=== PATIENT | female | born 1990 | race Caucasian/White ===

== ENCOUNTER 2020-06-14 20:20 | Emergency (ER) | payer BC ==
[2020-06-14] MEDS ORDERED: KETOROLAC 30 MG/ML INJ ONE (21:34)
[2020-06-14] MEDS ORDERED: CYCLOBENZAPRINE 10 MG TAB ONE (21:34)
--- NOTE | 2020-06-14 22:17 | ER ---
Nurse's Notes [facility] Name: Bari Dempsey Age: 29 yrs Sex: Female : 1990 Arrival Date: 06/14/2020 Time: 20:22 Bed 24 Private MD: Diagnosis: Sprain of ligaments of lumbar spine;Sprain of other specified parts of left knee Presentation: 06/14 20:31 Chief complaint: Patient states: Low back pain for 2 days. left knee swelling for 2 ll1 days. Fell on that knee 2 weeks ago. Abrasion noted. Coronavirus screen: Client denies travel out of the [place] in the last 14 days. At this time, the client does not indicate any symptoms associated with coronavirus-19. Ebola Screen: Patient denies travel to an Ebola-affected area in the 21 days before illness onset. Initial Sepsis Screen: Does the patient meet any 2 criteria? No. Patient's initial sepsis screen is negative. Risk Assessment: Do you want to hurt yourself or someone else? Patient reports no desire to harm self or others. Onset of symptoms was June 13, 2020. 20:31 Method Of Arrival: Ambulatory ll1 20:31 Acuity: ITALO 3 ll1 Historical: - Allergies: 20:33 PENICILLINS; ll1 20:33 medical tape; ll1 - PSHx: 20:33 D \T\ C; ; Tubal ligation; ll1 - Immunization history:: Flu vaccine is not up to date. - Social history:: Smoking status: Patient reports the use of cigarette tobacco products, smokes one-half pack cigarettes per day. Screenin:17 Abuse screen: Denies threats or abuse. Denies injuries from another. Nutritional aj1 screening: No deficits noted. Tuberculosis screening: No symptoms or risk factors identified. 23:16 Fall Risk None identified. aj1 Assessment: 21:16 General: Appears in no apparent distress. uncomfortable, Behavior is calm, cooperative, aj1 appropriate for age. Pain: Complains of pain in low back area and left knee Pain currently is 10 out of 10 on a pain scale. Neuro: Level of Consciousness is awake, alert, obeys commands. 21:17 Cardiovascular: Patient's skin is warm and dry. Respiratory: Airway is patent aj1 Respiratory effort is even, unlabored, Respiratory pattern is regular, symmetrical. GI: No signs and/or symptoms were reported involving the gastrointestinal system. : No signs and/or symptoms were reported regarding the genitourinary system. EENT: No signs and/or symptoms were reported regarding the EENT system. Derm: Skin is pink, warm \T\ dry. normal, Wound noted left knee Wound is abrasion. Musculoskeletal: Range of motion: limited in left knee. 21:57 Reassessment: Patient appears in no apparent distress at this time. No changes from aj1 previously documented assessment. Patient and/or family updated on plan of care and expected duration. Pain level reassessed. Patient is alert, oriented x 3, equal unlabored respirations, skin warm/dry/pink. Xray at bedside. 22:10 Reassessment: Patient states that she feels like her muscles are a little less tight aj1 since administration of Flexeril, but she still is having a hard time getting comfortable. Patient states that she still does not want IM Toradol because she is afraid of needles. States that she is open to receiving PO Motrin instead. Notified Dr. Sotelo. Order received. 22:30 Reassessment: Discharge pending MD talking to patient to explain discharge instructions.aj1 23:16 Reassessment: Patient appears in no apparent distress at this time. No changes from aj1 previously documented assessment. Patient and/or family updated on plan of care and expected duration. Pain level reassessed. Patient is alert, oriented x 3, equal unlabored respirations, skin warm/dry/pink. Vital Signs: 20:31 BP 115 / 80; Pulse 83; Resp 17; Temp 98.1; Pulse Ox 99% ; Height 5 ft. 7 in. (170.18 ll1 cm); Pain 10/10; 22:22 BP 111 / 76; Pulse 74; Resp 18; Pulse Ox 100% on R/A; aj1 23:16 BP 112 / 73; Pulse 72; Resp 18; Pulse Ox 100% on R/A; aj1 ED Course: 20:22 Patient arrived in ED. cl3 20:33 Triage completed. ll1 20:33 Arm band placed on. ll1 20:57 Steve Sotelo MD is Attending Physician. tw4 21:16 Sandra España, RN is Primary Nurse. aj1 21:17 Patient has correct armband on for positive identification. Placed in gown. Bed in low aj1 position. Call light in reach. 21:17 No provider procedures requiring assistance completed. aj1 22:01 Knee Left 2 View In Process Unspecified. EDMS 23:16 Patient did not have IV access during this emergency room visit. aj1 Administered Medications: 21:25 Drug: Flexeril 10 mg Route: PO; aj1 23:17 Follow up: Response: No adverse reaction aj1 21:25 Not Given (Patient Refused): TORadol 60 mg IM once aj1 22:16 Drug: Ibuprofen 800 mg Route: PO; aj1 23:17 Follow up: Response: No adverse reaction aj1 Outcome: 22:16 Discharge ordered by . tw4 23:16 Discharged to home via wheelchair, with family. aj1 23:16 Condition: good 23:16 Discharge instructions given to patient, family, Instructed on discharge instructions, follow up and referral plans. no drinking with medication, no driving heavy equipment, medication usage, Demonstrated understanding of instructions, follow-up care, medications, Prescriptions given X 4. 23:17 Patient left the ED. aj1 Signatures: Dispatcher [employer] EDOR Sandra España RN RN aj1 Steve Sotelo MD MD twKyree Gonzalez cl3 Yuliet Gay, RN RN ll1 Corrections: (The following items were deleted from the chart) 21:20 21:16 Pain: Complains of pain in low back area Pain currently is 10 out of 10 on a pain aj1 scale. aj1
--- NOTE | 2020-06-14 22:17 | EDPHYS ---
Physician Documentation [facility] Name: Bari Dempsey Age: 29 yrs Sex: Female : 1990 Arrival Date: 06/14/2020 Time: 20:22 Bed 24 Private MD: ED Physician Steve Sotelo HPI: 06/15 05:54 This 29 yrs old Female presents to ER via Ambulatory with complaints of Low tw4 Back Pain, Knee Pain. 05:54 The patient presents with pain that is acute. The symptoms are located in the low back. tw4 The pain does not radiate. Onset: The symptoms/episode began/occurred today. Modifying factors: The patient symptoms are alleviated by nothing, the patient symptoms are aggravated by nothing. Severity of symptoms: At their worst the symptoms were moderate. The patient has not experienced similar symptoms in the past. Historical: - Allergies: 06/14 20:33 PENICILLINS; ll1 20:33 medical tape; ll1 - PSHx: 20:33 D \T\ C; ; Tubal ligation; ll1 - Immunization history:: Flu vaccine is not up to date. - Social history:: Smoking status: Patient reports the use of cigarette tobacco products, smokes one-half pack cigarettes per day. ROS: 06/15 05:54 Constitutional: Negative for fever, chills, and weight loss, Eyes: Negative for injury, tw4 pain, redness, and discharge, Cardiovascular: Negative for chest pain, palpitations, and edema, Respiratory: Negative for shortness of breath, cough, wheezing, and pleuritic chest pain, Abdomen/GI: Negative for abdominal pain, nausea, vomiting, diarrhea, and constipation, MS/Extremity: Negative for injury and deformity, Skin: Negative for injury, rash, and discoloration, Neuro: Negative for headache, weakness, numbness, tingling, and seizure. Back: Positive for decreased range of motion, pain at rest, pain with movement. MS/extremity: Positive for injury or acute deformity, pain, tenderness, Negative for Exam: 05:54 Constitutional: This is a well developed, well nourished patient who is awake, alert, tw4 and in no acute distress. Head/Face: Normocephalic, atraumatic. Chest/axilla: Normal chest wall appearance and motion. Nontender with no deformity. No lesions are appreciated. Cardiovascular: Regular rate and rhythm with a normal S1 and S2. No gallops, murmurs, or rubs. Normal PMI, no JVD. No pulse deficits. Respiratory: Lungs have equal breath sounds bilaterally, clear to auscultation and percussion. No rales, rhonchi or wheezes noted. No increased work of breathing, no retractions or nasal flaring. Abdomen/GI: Soft, non-tender, with normal bowel sounds. No distension or tympany. No guarding or rebound. No evidence of tenderness throughout. Back: No spinal tenderness. No costovertebral tenderness. Full range of motion. Neuro: Awake and alert, GCS 15, oriented to person, place, time, and situation. Cranial nerves II-XII grossly intact. Motor strength 5/5 in all extremities. Sensory grossly intact. Cerebellar exam normal. Normal gait. 05:54 Musculoskeletal/extremity: ROM: limited active range of motion, in the left knee, Circulation is intact in all extremities. Sensation intact. 05:57 Back: muscle spasm, is appreciated in the left low back and right low back. tw4 Vital Signs: 06/14 20:31 BP 115 / 80; Pulse 83; Resp 17; Temp 98.1; Pulse Ox 99% ; Height 5 ft. 7 in. (170.18 ll1 cm); Pain 10/10; 22:22 BP 111 / 76; Pulse 74; Resp 18; Pulse Ox 100% on R/A; aj1 23:16 BP 112 / 73; Pulse 72; Resp 18; Pulse Ox 100% on R/A; aj1 MDM: 20:57 Patient medically screened. tw4 06/15 05:57 Differential diagnosis: arthritis, strain, fracture, contusion. Data reviewed: vital tw4 signs, nurses notes. Data reviewed: radiologic studies, plain films. Data interpreted: Pulse oximetry: Interpretation: normal. Test interpretation: by ED physician or midlevel provider: plain radiologic studies. Counseling: I had a detailed discussion with the patient and/or guardian regarding: the historical points, exam findings, and any diagnostic results supporting the discharge/admit diagnosis, radiology results. Medication response: flexeril. 06/14 22:00 Order name: Knee Left 2 View EDWV 06/14 22:14 Order name: Erik Wrap; Complete Time: 23:09 tw4 Administered Medications: 06/14 21:25 Drug: Flexeril 10 mg Route: PO; aj1 23:17 Follow up: Response: No adverse reaction aj1 :25 Not Given (Patient Refused): TORadol 60 mg IM once aj1 22:16 Drug: Ibuprofen 800 mg Route: PO; aj1 23:17 Follow up: Response: No adverse reaction aj Disposition: 06/14/20 22:16 Discharged to Home. Impression: Sprain of ligaments of lumbar spine, Sprain of other specified parts of left knee. - Condition is Stable. - Discharge Instructions: Back Pain, Adult, Knee Sprain. - Prescriptions for Lidoderm 5 % Topical adhesive patch,medicated - apply 1 patch by TRANSDERMAL route once daily; 1 box. Ibuprofen 800 mg Oral Tablet - take 1 tablet by ORAL route every 8 hours As needed take with food; 30 tablet. Cyclobenzaprine 10 mg Oral Tablet - take 1 tablet by ORAL route every 8 hours As needed; 30 tablet. Tramadol 50 mg Oral Tablet - take 1 tablet by ORAL route every 8 hours as needed; 12 tablet. - Medication Reconciliation Form, Thank You Letter, Antibiotic Education, Prescription Opioid Use form. - Follow up: Private Physician; When: Upon discharge from the Emergency Department; Reason: Recheck today's complaints, Continuance of care, Re-evaluation by your physician. - Problem is new. - Symptoms have improved. Signatures: Dispatcher [employer] Sandra Clark RN RN aj1 Steve Sotelo MD MD tw4 Yuliet Gay RN RN ll1 Corrections: (The following items were deleted from the chart) 22:00 21:40 Knee Right 2 View+RAD.RAD.BRZ ordered. [facility] 23:17 22:16 06/14/2020 22:16 Discharged to Home. Impression: Sprain of ligaments of lumbar aj1 spine; Sprain of other specified parts of left knee. Condition is Stable. Forms are Medication Reconciliation Form, Thank You Letter, Antibiotic Education, Prescription Opioid Use. Follow up: Private Physician; When: Upon discharge from the Emergency Department; Reason: Recheck today's complaints, Continuance of care, Re-evaluation by your physician. Problem is new. Symptoms have improved. tw4
[2020-06-14] MEDS ORDERED: IBUPROFEN 200 MG TAB PO ONE (22:28)
[2020-06-14 23:26] VITALS: TEMP 98.1
[2020-06-14 23:28] VITALS: O2SAT 100
[2020-06-14 23:29] VITALS: BP 112/73
--- NOTE | 2020-06-15 07:36 | RAD REPORT ---
EXAM DESCRIPTION: RAD - Knee Left 2 View - 06/14/2020 10:24 pm CLINICAL HISTORY: PAIN, persistent left knee pain following fall 2 weeks earlier COMPARISON: No comparisons FINDINGS: No fracture, dislocation or periosteal reaction.No joint effusion seen. No joint space brian rowing. No soft tissue abnormality. IMPRESSION: Negative left knee. Clinical concerns for internal derangement or occult bony injury could be further assessed with MR im aging.
== END 2020-06-14 23:17 | disposition home or self-care (01) ==
LOC: ER 20:20
DX: S33.5XXA Sprain of ligaments of lumbar spine, initial encounter (principal); S83.8X2A Sprain of other specified parts of left knee, initial encounter; Z88.0 Allergy status to penicillin; Z91.048 Other nonmedicinal substance allergy status; F17.210 Nicotine dependence, cigarettes, uncomplicated
CPT/HCPCS: 99283

== ENCOUNTER 2022-08-18 00:17 | Emergency (ER) | payer BC, SELFPAY ==
[2022-08-18] MEDS ORDERED: KETOROLAC 30 MG/ML INJ ONE (00:51)
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
[2022-08-18 03:31] VITALS: TEMP 98.3
[2022-08-18 03:32] VITALS: BP 109/98; O2SAT 95
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
== END 2022-08-18 02:32 | disposition home or self-care (01) ==
LOC: ER 00:17
DX: S30.0XXA Contusion of lower back and pelvis, initial encounter (principal); Y04.2XXA Assault by strike against or bumped into by another person, initial encounter; Z88.0 Allergy status to penicillin; Z91.048 Other nonmedicinal substance allergy status
CPT/HCPCS: 72131; 96374; 99283